=== PATIENT | male | born 1950 | race Caucasian/White ===

== ENCOUNTER → 2016-03-13 | Outpatient (CLI) | payer MEDICAID ==
[2016-03-13 09:07] LABS: CH 29.2; CHCM 33.8; HDW 2.55; MCH 28.9 pg (25.0-35.0); MCHC 33.3 g/dL (31.0-37.0); MCV 86.7 fL (80.0-100.0); Mean Platelet Volume 6.7; RBC 5.19 m/uL (4.30-5.90); RDW 12.6 % (11.5-15.5); WBC 5.3 k/uL (3.8-10.6)
[2016-03-13 10:01] LABS: ALT 35 U/L (21-72); AST 20 U/L (17-59); Alkaline Phosphatase 61 U/L (38-126); Anion Gap 9 mmol/L; Blood Urea Nitrogen 14 mg/dL (9-20); Calcium 9.4 mg/dL (8.4-10.2); Carbon Dioxide 29 mmol/L (22-30); Chloride 107 mmol/L (98-107); Cholesterol 161 mg/dL (<200); Glucose 99 mg/dL (74-99); HDL Cholesterol 57 mg/dL (40-60); Non-African American GFR(MDRD) >60 (>60 ml/min/1.73 sqM); Potassium 4.7 mmol/L (3.5-5.1); Sodium 145 mmol/L (137-145); Total Protein 6.7 g/dL (6.3-8.2); Triglycerides 56 mg/dL (<150)
[2016-03-13 11:45] LABS: Prostate Specific Antigen 2.37 ng/mL (0.00-4.00)
[2016-03-13 13:51] LABS: Hemoglobin A1C 5.2 % (4.2-6.1)
== END | disposition home or self-care (01) ==
LOC: LABWHC1 08:22
PROVIDERS: ATTEND Internal Medicine Critical Care Medicine
DX: H65.92 Unspecified nonsuppurative otitis media, left ear (principal)
CPT/HCPCS: 36415; 80053; 80061; 82164; 82306; 83036; 84153; 84439; 84443; 85027

== ENCOUNTER → 2017-03-05 | Outpatient (CLI) | payer MEDICAID ==
[2017-03-05 11:01] LABS: Basophils # (A) 0.1 k/uL (0-0.2); Basophils % (A) 1 %; Eosinophils % (A) 0 %; HCT 47.3 % (39.0-53.0); HGB 15.6 gm/dL (13.0-17.5); Lymphocytes # (A) 1.6 k/uL (1.0-4.8); Lymphocytes % (A) 18 %; MCH 28.9 pg (25.0-35.0); MCV 87.5 fL (80.0-100.0); Mean Platelet Volume 6.8; Monocytes # (A) 0.5 k/uL (0-1.0); Monocytes % (A) 6 %; Neutrophils # (A) 6.6 k/uL (1.3-7.7); Neutrophils % (A) 74 %; Platelet Count 262 k/uL (150-450); RDW 12.8 % (11.5-15.5); WBC 8.9 k/uL (3.8-10.6)
[2017-03-05 11:17] LABS: ALT 36 U/L (21-72); AST 17 U/L (17-59); Albumin 4.5 g/dL (3.5-5.0); Alkaline Phosphatase 69 U/L (38-126); Anion Gap 12 mmol/L; Blood Urea Nitrogen 23 mg/dL (9-20); Calcium 9.6 mg/dL (8.4-10.2); Carbon Dioxide 27 mmol/L (22-30); Chloride 107 mmol/L (98-107); Cholesterol 179 mg/dL (<200); Glucose 85 mg/dL (74-99); HDL Cholesterol 60 mg/dL (40-60); LDL Cholesterol,Calculated 105 mg/dL (0-99); Potassium 4.4 mmol/L (3.5-5.1); Sodium 146 mmol/L (137-145); Total Protein 7.2 g/dL (6.3-8.2); Triglycerides 68 mg/dL (<150)
[2017-03-05 11:33] LABS: T4, Free (Free Thyroxine) 0.98 ng/dL (0.78-2.19)
[2017-03-05 11:47] LABS: PSA Annual Screen 1.88 ng/mL (0.00-4.00)
[2017-03-05 18:20] LABS: Hemoglobin A1C 5.1 % (4.0-6.0)
== END | disposition home or self-care (01) ==
LOC: LABWHC1 10:21
PROVIDERS: ATTEND Internal Medicine Critical Care Medicine
DX: Z00.00 Encounter for general adult medical examination without abnormal findings (principal); D86.9 Sarcoidosis, unspecified; E55.9 Vitamin D deficiency, unspecified; Z12.5 Encounter for screening for malignant neoplasm of prostate
CPT/HCPCS: 84439; 80061; 80053; 82164; 84443; 85025; 82306; 83036; 36415; G0103

== ENCOUNTER 2018-07-06 22:56 | Emergency (ER) | payer BC ==
[2018-07-06 23:07] VITALS: TEMP 98.1
[2018-07-06] MEDS ORDERED: OXYMETAZOLINE 0.05% NASL SPRAY 1 SPRAY BOTTLE NASAL STA (23:42)
--- NOTE | 2018-07-07 00:24 | ED ---
ENT HPI - General Chief complaint: ENT Stated complaint: nose bleed Time Seen by Provider: 07/06/18 23:12 Source: patient Mode of arrival: ambulatory Limitations: no limitations - History of Present Illness Initial comments: Patient is a 67-year-old male presenting to emergency Department with epistaxis. Patient reports multiple epistaxis this month with no prior history of them. Patient denies any trauma to the nose. Patient states that one started earlier today lasted for about 40 minutes before they decided to come to the emergency department. Patient states that he apply pressure continuously without resolution of the bleed. Patient states almost all previous episodes appeared from the right nostril. Patient said that he followed up with his primary care who referred him to an ENT physician and have an appointment scheduled on the of this month. Patient denies any headache, nausea, vomiting, fever, lightheadedness, dizziness. - Related Data Previous Rx's Medication Instructions Recorded Sodium Chloride [Saline Nasal 1 spray EA NOSTRIL Q4-6H #1 bottle 07/07/18 [place]] Allergies Allergy/AdvReac Type Severity Reaction Status Date / Time naproxen [From Naprosyn] Allergy Rash/Hives Verified 07/06/18 23:23 Review of Systems ROS Statement: Those systems with pertinent positive or pertinent negative responses have been documented in the HPI. ROS Other: All systems not noted in ROS Statement are negative. Past Medical History Past Medical History: No Reported History History of Any Multi-Drug Resistant Organisms: None Reported Past Surgical History: Adenoidectomy, Cholecystectomy, Hernia Repair, Joint Replacement, Orthopedic Surgery, Tonsillectomy Additional Past Surgical History / Comment(s): prostate surgery Past Psychological History: No Psychological Hx Reported Smoking Status: Never smoker Past Alcohol Use History: None Reported Past Drug Use History: None Reported General Exam Limitations: no limitations General appearance: alert, in no apparent distress Head exam: Present: atraumatic, normocephalic, normal inspection Eye exam: Present: normal appearance, PERRL, EOMI Pupils: Present: normal accommodation ENT exam: Present: other (anterior Bleeding visualized in the right nostril. The visualized and the left nostril but no continuous bleeding.) Neck exam: Present: normal inspection Respiratory exam: Present: normal lung sounds bilaterally Cardiovascular Exam: Present: regular rate, normal rhythm, normal heart sounds Neurological exam: Present: alert, oriented X3 Psychiatric exam: Present: normal affect, normal mood Skin exam: Present: warm, normal color Course Vital Signs 07/06/18 23:03 Temperature 98.1 F Pulse Rate 90 Respiratory 20 Rate Blood Pressure 149/94 O2 Sat by Pulse 96 Oximetry Medical Decision Making - Medical Decision Making Patient is a 67-year-old male presenting to emergency Department with epistaxis. Afrin was applied in both nostrils and pressure was applied for 10 minutes. Bleeding continued so I cauterized using silver nitrate as I was able to visualize the anterior bleeding.. Patient was advised to use the Afrin and hold pressure in case bleeding occurs again. Patient advised to follow ENT. Patient advised to return to emergency department if symptoms worsen. Case discussed with physician. Disposition Clinical Impression: Epistaxis not due to trauma Disposition: HOME SELF-CARE Condition: Stable Instructions (If sedation given, give patient instructions): Nosebleed (ED) Additional Instructions: Please use Afrin as directed. Please follow-up with ENT please return to emergency department if symptoms worsen Is patient prescribed a controlled substance at d/c from ED?: No Referrals: Jesneia Jospeh MD [Primary Care Provider] - 1-2 days Ayaz Danielle DO [Doctor of Osteopathic Medicine] - 1-2 days Decision Time: 00:12
[2018-07-07] MEDS ORDERED: SILVER NITRATE APPLICATOR 1 EACH STICK..EA. TOPICAL STA (00:25)
[2018-07-07 00:54] VITALS: BP 138/87; PULSE 83; RESP 16
== END 2018-07-07 00:54 | disposition home or self-care (01) ==
LOC: EC 22:56
DX: R04.0 Epistaxis (principal); Z88.6 Allergy status to analgesic agent
CPT/HCPCS: 30901; 99283

== ENCOUNTER → 2018-07-19 | Outpatient (CLI) | payer BC ==
[2018-07-19 08:51] LABS: Basophils % (A) 1 %; Eosinophils # (A) 0.3 k/uL (0-0.7); Eosinophils % (A) 4 %; HCT 43.5 % (39.0-53.0); HGB 14.2 gm/dL (13.0-17.5); Lymphocytes # (A) 1.2 k/uL (1.0-4.8); Lymphocytes % (A) 18 %; MCH 28.1 pg (25.0-35.0); MCHC 32.7 g/dL (31.0-37.0); MCV 85.9 fL (80.0-100.0); Mean Platelet Volume 7.3; Monocytes # (A) 0.3 k/uL (0-1.0); Monocytes % (A) 5 %; Neutrophils # (A) 4.9 k/uL (1.3-7.7); Neutrophils % (A) 71 %; Platelet Count 247 k/uL (150-450); RBC 5.06 m/uL (4.30-5.90); RDW 14.4 % (11.5-15.5); WBC 6.9 k/uL (3.8-10.6)
[2018-07-19 08:52] LABS: INR 0.9 (<1.2); Prothrombin Time 9.6 sec (9.0-12.0)
== END | disposition home or self-care (01) ==
LOC: LABWHC1 08:21
PROVIDERS: ATTEND Otolaryngology
DX: R04.0 Epistaxis (principal)
CPT/HCPCS: 36415; 85025; 85610

== ENCOUNTER 2018-08-30 07:49 | Day surgery (SDC) | payer BC, OTHER ==
[2018-08-28 11:19] VITALS: BMI 28.1
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
[~2018-08-30 07:49] MED LIST: DEXAMETHASONE SOD PHOSPHATE 10 MG/ML 1 ML VIAL IV ONE; HEPARIN SODIUM,PORCINE 5,000 UNIT/ML 1 ML VIAL SQ ONE; ONDANSETRON 4 MG/2 ML VIAL IVP ONE; SCOPOLAMINE 1.5MG/72HR PATCH TRANSDERM ONE; ceFAZolin IN SWFI 2 GM/20 ML SYRINGE IVP ONE
[2018-08-30] MEDS: LACTATED RINGERS 1,000 ML IV SCH (08:42)
[2018-08-30] MEDS: LIDOCAINE 1% 20 ML VIAL (10MG/ML) FOR IV START INTRADERMA PRN ×2 (08:42→08:43)
[2018-08-30] MEDS ORDERED: ROCURONIUM BROMIDE 10 MG/ML 10 ML VIAL IV ONE (09:14)
[2018-08-30] MEDS ORDERED: fentaNYL (PF) 50 MCG/ML 2 ML AMP ONE (09:14)
[2018-08-30] MEDS ORDERED: NEOSTIGMINE 1 MG/ML 10 ML VIAL ONE (09:14)
[2018-08-30] MEDS ORDERED: SUCCINYLCHOLINE CHLORIDE 100 MG/5 ML SYR IV ONE (09:14)
[2018-08-30] MEDS ORDERED: LIDOCAINE 1% INJ 10MG/ML (20 ML MDV) ONE (09:14)
[2018-08-30] MEDS ORDERED: PROPOFOL 10 MG/ML 20 ML VIAL IV ONE (09:14)
[2018-08-30] MEDS ORDERED: MIDAZOLAM 2 MG/2 ML VIAL ONE (09:14)
[2018-08-30] MEDS ORDERED: GLYCOPYRROLATE 0.2 MG/ML 2 ML VIAL ONE (09:14)
[2018-08-30] MEDS ORDERED: BUPIVACAINE (PF) 0.25% 30 ML VIAL SQ ONE (09:57)
[2018-08-30] MEDS ORDERED: HYDROcodone/APAP 5-325MG 1 EACH TAB PO PRN (11:26)
[2018-08-30] MEDS ORDERED: NALOXONE 0.4 MG/ML 1 ML VIAL IV PRN (11:26)
[2018-08-30 11:28] VITALS: TEMP 97.1
--- NOTE | 2018-08-30 11:33 | P.OP ---
Date of Procedure: 08/30/18 Procedure(s) Performed: PREOPERATIVE DIAGNOSIS: Recurrent left inguinal hernia, right inguinal hernia POSTOPERATIVE DIAGNOSIS: Same PROCEDURE: Laparoscopic repair bilateral inguinal hernia with the da Elysia robot assistance with mesh SURGEON: Esperanza EBL: Minimal ANESTHESIA: General COMPLICATIONS: None OPERATIVE PROCEDURE: Patient was placed in the operating table in the supine position. The patient was placed under general anesthesia. The abdomen was prepped and draped in usual sterile fashion. A small curvilinear supraumbilical incision was made. The fascia was retracted anteriorly with Gregg forceps. The Veress needle was inserted. The saline drop test was normal. Insufflation took place to 15 mmHg. A 5 mm trocar was placed into the peritoneal cavity. This was later switched to a 12 mm trocar. 2 additional 8 mm trochars were placed in the right upper quadrant and left upper quadrant under visualization. The robotic arms were then brought in and docked into place. The fenestrated bipolar was used in the left arm and the laparoscopic maribel was utilized in the right arm. A 30 12 mm scope was used in the up position. The peritoneal cavity was inspected. The patient had evidence of a direct hernia on the right side. There was scarring involving the peritoneum on the left side. There was no defect evident on the left side to point out the exact site of hernia. The left side was first addressed. The peritoneum was incised in a horizontal fashion cephalad to the internal inguinal ring. Following that careful dissection of the preperitoneal space took place. This took place using both electrocautery, sharp dissection but primarily blunt dissection. Visualization of the pubic tubercle and Doc's ligament took place medially. Full dissection took place laterally as well. The patient had a small femoral hernia evident. There was no large indirect or direct hernia identified. There was no sizable lipoma of the cord evident. Once the dissection was complete the 15 x 10 cm Progrip mesh was advanced into the preperitoneal space and flattened out appropriately to cover all potential hernia sites. No sutures were used. The peritoneum on the right side was then incised in a similar fashion. The preperitoneal space was fully dissected. The direct hernia was able to be reduced without difficulty. There was no evidence of femoral or indirect hernia on this side. The 15 by centimeter Progrip mesh was again utilized and placed along the dissection cov ering all potential hernia sites. The 2 portions of the mesh did cover one another in the midline. The defect bilaterally was then closed using a running 2-0 VLok suture. The pneumoperitoneum was then evacuated. The fascia at the 12 mm site was closed using the Juan Antonio Hussein technique and an 0 Vicryl stitch. The skin of all 3 sites was closed using a 4-0 Monocryl stitch. Skin glue was then applied. DISPOSITION: Stable to recovery room
[2018-08-30] MEDS: HYDROmorphone 0.5 MG/0.5 ML SYRINGE IVP PRN ×2 (11:49→12:06)
[2018-08-30] MEDS ORDERED: ONDANSETRON 4 MG/2 ML VIAL IVP ONE (12:30)
[2018-08-30 12:49] VITALS: RESP 18
[2018-08-30] MEDS ORDERED: PROMETHAZINE INJ 25 MG/ML 1 ML VIAL IVPB ONE (13:07)
[2018-08-30 13:41] VITALS: BP 134/84; PULSE 72
== END 2018-08-30 13:54 | disposition home or self-care (01) ==
LOC: OR 07:49
PROVIDERS: ATTEND Surgery
DX: K40.20 Bilateral inguinal hernia, without obstruction or gangrene, not specified as recurrent (principal); I10 Essential (primary) hypertension; Z79.899 Other long term (current) drug therapy; Z88.6 Allergy status to analgesic agent; Z90.49 Acquired absence of other specified parts of digestive tract; Z96.60 Presence of unspecified orthopedic joint implant
CPT/HCPCS: 49650; S2900

== ENCOUNTER 2019-03-15 13:03 | Inpatient (IN) | payer MEDICARE ==
[2019-03-15] MEDS ORDERED: ASPIRIN 81 MG PO STA (13:28)
[2019-03-15] MEDS ORDERED: SODIUM CHLORIDE 0.9% 500 ML 500 ML IV STA (13:28)
[2019-03-15 14:06] LABS: Basophils % (A) 1 %; Eosinophils # (A) 0.3 k/uL (0-0.7); Eosinophils % (A) 4 %; HCT 45.2 % (39.0-53.0); HGB 15.5 gm/dL (13.0-17.5); Lymphocytes # (A) 1.4 k/uL (1.0-4.8); Lymphocytes % (A) 17 %; MCH 29.4 pg (25.0-35.0); MCHC 34.2 g/dL (31.0-37.0); MCV 85.9 fL (80.0-100.0); Mean Platelet Volume 7.3; Monocytes # (A) 0.4 k/uL (0-1.0); Monocytes % (A) 5 %; Neutrophils % (A) 72 %; Platelet Count 253 k/uL (150-450); RBC 5.27 m/uL (4.30-5.90); RDW 12.5 % (11.5-15.5); WBC 8.3 k/uL (3.8-10.6)
[2019-03-15 14:15] LABS: D-Dimer 0.31 mg/L FEU (<0.60); INR 0.9 (<1.2); Partial Thromboplastin Time 25.3 sec (22.0-30.0); Prothrombin Time 9.6 sec (9.0-12.0)
[2019-03-15 14:17] LABS: Albumin 4.4 g/dL (3.5-5.0); Calcium 9.4 mg/dL (8.4-10.2); Magnesium 2.1 mg/dL (1.6-2.3); Potassium 3.7 mmol/L (3.5-5.1); Total Bilirubin 1.2 mg/dL (0.2-1.3); Total Protein 7.3 g/dL (6.3-8.2)
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
--- NOTE | 2019-03-15 14:43 | XR ---
EXAMINATION TYPE: XR chest 2V DATE OF EXAM: 03/15/2019 COMPARISON: NONE HISTORY: Shortness of breath TECHNIQUE: Frontal and lateral views of the chest are obtained. FINDINGS: Scattered senescent parenchymal changes noted. Hyperinflation compatible with COPD. No evidence for infiltrate. No evidence for atelectasis. Heart size is stable. Mediastinal structures are stable and grossly unremarkable. No evidence for hilar prominence. Degenerative changes dorsal spine. IMPRESSION: 1. No evidence for acute pulmonary disease.
[2019-03-15] MEDS ORDERED: NITROGLYCERIN SL TABS 0.4 MG TAB SUBLINGUAL PRN (14:58)
[2019-03-15] MEDS ORDERED: NALOXONE 0.4 MG/ML 1 ML VIAL IV PRN (17:11)
[2019-03-15] MEDS ORDERED: ACETAMINOPHEN TAB 325 MG TAB PO PRN (17:11)
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
[2019-03-15 20:32] LABS: Glucose,Whole Blood 107 mg/dL (75-99)
[2019-03-16 03:06] LABS: Cholesterol 157 mg/dL (<200); HDL Cholesterol 43 mg/dL (40-60); LDL Cholesterol,Calculated 98 mg/dL (0-99); Triglycerides 80 mg/dL (<150)
[2019-03-16] MEDS: ASPIRIN 325 MG TAB PO SCH (10:42)
[2019-03-16] MEDS: HYDROCHLOROTHIAZIDE 12.5 MG CAP PO SCH (10:42)
[2019-03-16] MEDS ORDERED: SODIUM CHLORIDE 0.9% 1,000 ML in EMPTY BAG 1 BAG IV ONE (10:48)
[2019-03-16] MEDS ORDERED: ALPRAZolam 0.5 MG TAB PO PRN (10:48)
[2019-03-16] MEDS ORDERED: ALPRAZolam 0.25 MG TAB PO PRN (10:48)
--- NOTE | 2019-03-16 11:00 | ECHOF ---
Referral Reason: MEASUREMENTS -------- HEIGHT: 167.6 cm WEIGHT: 83.0 kg BP: 149/100 RVIDd: 4.1 cm (< 3.3) IVSd: 1.6 cm (0.6 - 1.1) LVIDd: 3.9 cm (3.9 - 5.3) LVPWd: 1.6 cm (0.6 - 1.1) IVSs: 2.3 cm LVIDs: 2.3 cm LVPWs: 2.1 cm LAESV Index (A-L): 19.35 ml/m Ao Diam: 3.0 cm (2.0 - 3.7) AV Cusp: 2.2 cm (1.5 - 2.6) LA Diam: 3.6 cm (2.7 - 3.8) MV EXCURSION: 17.007 mm (> 18.000) MV EF SLOPE: 93 mm/s (70 - 150) EPSS: 1.0 cm MV E Vamsi: 0.56 m/s MV DecT: 192 ms MV A Vamsi: 0.59 m/s MV E/A Ratio: 0.94 AR PHT: 876 ms RAP: 15.00 mmHg RVSP: 48.12 mmHg FINDINGS -------- Sinus rhythm. This was a technically adequate study. The left ventricular size is normal. There is moderate concentric left ventricular hypertrophy. O verall left ventricular systolic function is normal with, an EF between 55 - 60 %. The diastolic fi lling pattern is normal for the age of the patient 6.24. The right ventricle is moderately enlarged. The left atrial size is normal. Normal LA size by volume 22+/-6 ml/m2. The right atrial size is normal. The aortic valve is trileaflet and appears structurally normal. There is [id number] aortic re gurgitation. The mitral valve is normal. The mitral valve leaflets are mildly thickened. Mild mitral regurgita tion is present. The tricuspid valve appears structurally normal. Mild tricuspid regurgitation present. There is m ild to moderate pulmonary hypertension. The right ventricular systolic pressure, as measured by Dop pler, is 48.12mmHg. There is no pulmonic regurgitation present. The aortic root size is normal. The inferior vena cava is mildly dilated. There is no pericardial effusion. CONCLUSIONS -------- 1. Sinus rhythm. 2. This was a technically adequate study. 3. The left ventricular size is normal. 4. There is moderate concentric left ventricular hypertrophy. 5. Overall left ventricular systolic function is normal with, an EF between 55 - 60 %. 6. The diastolic filling pattern is normal for the age of the patient 6.24 7. The right ventricle is moderately enlarged. 8. The left atrial size is normal. 9. Normal LA size by volume 22+/-6 ml/m2. 10. The right atrial size is normal. 11. The aortic valve is trileaflet and appears structurally normal. 12. There is gfcq-uf-rdggiwca aortic regurgitation. 13. The mitral valve is normal. 14. The mitral valve leaflets are mildly thickened. 15. Mild mitral regurgitation is present. 16. The tricuspid valve appears structurally normal. 17. Mild tricuspid regurgitation present. 18. There is mild to moderate pulmonary hypertension. 19. The right ventricular systolic pressure, as measured by Doppler, is 48.12mmHg. 20. There is no pulmonic regurgitation present. 21. The aortic root size is normal. 22. The inferior vena cava is mildly dilated. 23. There is no pericardial effusion. HAMMERER TAB: Zulma Meraz, [facility]
--- NOTE | 2019-03-16 12:19 | P.PN ---
Subjective Progress Note Date: 03/16/19 Principal diagnosis: Palpitations and shortness of breath Patient was seen and examined. No acute events overnight. Patient with no complaints today. He denies any chest pain, shortness of breath or palpitations. No nausea or vomiting. No fever or chills. Objective - Vital Signs Vital signs: Vital Signs Temp 97.6 F 03/16/19 11:27 Pulse 76 03/16/19 11:27 Resp 18 03/16/19 11:27 BP 147/81 03/16/19 11:27 Pulse Ox 96 03/16/19 11:27 Intake & Output 03/15/19 03/16/19 03/16/19 18:59 06:59 18:59 Intake Total 222 Balance 222 Weight 83.007 kg Intake: Oral 222 Other: # Voids 1 - Exam General: [non toxic], [no distress], [appears at stated age] Derm: [warm], [dry] Head: [atraumatic], [normocephalic], [symmetric] Eyes: [EOMI], [no lid lag], [anicteric sclera] Mouth: [no lip lesion], [mucus membranes moist] Cardiovascular: [S1S2 reg], [no murmur], [positive DP pulse bilateral], Lungs: [CTA bilateral], [no rhonchi, no rales] , [no accessory muscle use] Abdominal: [soft], [ nontender to palpation], [no guarding], [no appreciable organomegaly] Ext: [no gross muscle atrophy], [no edema], [no contractures] Neuro: [no focal neuro deficits] Psych: [Alert], [oriented], [appropriate affect] - Labs CBC & Chem 7: 03/15/19 13:47 03/15/19 13:47 Labs: Abnormal Lab Results - Last 24 Hours (Table) 03/15/19 Range/Units 20:26 POC Glucose (mg/dL) 107 H (75-99) mg/dL Assessment and Plan Assessment: Palpitations with exertional shortness of breath, rule out acute coronary syndrome Uncontrolled Hypertension History of prostate cancer Given aspirin in the ED. Troponin less than 0.012 3 with EKG showing normal sinus rhythm with T-wave abnormalities. Symptoms appear cardiac in nature. D- dimer negative low concerns for PE. Echocardiogram shows EF 55-60% with moderate concentric LVH. Lipid panel is within normal limits. Plans: Plans for cardiac catheterization tomorrow. 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 Follow cardiology consultation. BP 147/81. Plans: Resume hydrochlorothiazide. Monitor vitals, adjust medications as necessary. PSA negative July 2018. Plans: Patient will need adequate follow-up with his PCP. [Patient admitted for stable angina. Plans for cardiac catheterization tomorrow. ACS ruled out. Likely DC in 1-2 days.]
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
[2019-03-17] MEDS: ASPIRIN 325 MG TAB PO SCH (06:05)
[2019-03-17] MEDS: HYDROCHLOROTHIAZIDE 12.5 MG CAP PO SCH (06:05)
[2019-03-17 07:45] VITALS: RESP 18
--- NOTE | 2019-03-17 08:28 | P.PN ---
Subjective Progress Note Date: 03/17/19 Principal diagnosis: patient is seen for follow up on stable angina symptoms, palpitation with SOB Patient seen and examined, doing well currently nothing by mouth, denies any fev ers chills chest pain trouble breathing or palpitations. Patient in good spirits answered all questions. Patient at bedside awaiting for left heart cath Objective - Vital Signs Vital signs: Vital Signs Temp 98.0 F 03/16/19 23:49 Pulse 82 03/16/19 23:49 Resp 17 03/16/19 23:49 BP 118/71 03/16/19 23:49 Pulse Ox 99 03/16/19 23:49 Intake & Output 03/16/19 03/17/19 03/17/19 18:59 06:59 18:59 Weight 79.4 kg Other: # Voids 1 1 - Exam Constitutional: vital signs stable, Not in acute distress, pleasant, conversant Lungs: Clear to auscultation bilaterally, clear to percussion, normal respiratory effort no use of accessory muscles Cardiovascular: Regular rate and rhythm, no murmurs, no gallops, no rubs, no peripheral edema Extremities: No digital cyanosis or clubbing, peripheral pulses palpable and equal over bilateral radial arteries and dorsalis pedis artery, no calf muscle tenderness Psych: Alert, oriented to place, person and time, appropriate affect, intact judgment - Labs CBC & Chem 7: 03/15/19 13:47 03/15/19 13:47 Assessment and Plan Assessment: 68 year old male with history of CAD, and prostate cancer patient comes in with palpitation and chest pain symptoms suggestive of stable angina. Echocardiogram showed left ventricular ejection fraction 5560 percent with moderate concentric LVH pattern. Tubes negative. Cardiology planning on left heart cath Plan: symptoms suggestive of stable angina , Palpitations with exertional shortness of breath, rule out acute coronary syndrome hypertension , now better controlled , on hydrochlorthiazide History of prostate cancer patient monitor uneventful labs unremarkable , flu negative, LDL 98, trops negative Echocardiogram shows EF 55-60% with moderate concentric LVH. cardiology Plans for cardiac catheterization today , continue with aspirin PSA negative July 2018. Plans: Patient will need adequate follow-up with his PCP. DVT PPX, heparin sc tid possible discharge within 24 hours, await cardiology recs.
[2019-03-17] MEDS ORDERED: IV FLUID CONTINUATION 1,000 ML IV ONE (08:48)
[2019-03-17] MEDS ORDERED: LIDOCAINE 1% INJ 10MG/ML (20 ML MDV) ONE (08:55)
[2019-03-17] MEDS ORDERED: fentaNYL (PF) 50 MCG/ML 2 ML AMP ONE (08:56)
[2019-03-17] MEDS ORDERED: MIDAZOLAM 2 MG/2 ML VIAL IV ONE (08:58)
[2019-03-17] MEDS ORDERED: fentaNYL (PF) 50 MCG/ML 2 ML AMP IV ONE (08:59)
[2019-03-17] MEDS ORDERED: LIDOCAINE 1% INJ 10MG/ML (20 ML MDV) SQ ONE (09:03)
[2019-03-17] MEDS ORDERED: IOPAMIDOL-370 125ML BTL INJ ONE (09:20)
[2019-03-17] MEDS ORDERED: RX INFO: IV CONTRAST WAS GIVEN 1 EACH MISC MISCELLANE PRN (09:38)
[2019-03-17] MEDS ORDERED: METOPROLOL SUCCINATE (ER) 50 MG TAB.ER.24H PO SCH (09:45)
[2019-03-17] MEDS ORDERED: SODIUM CHLORIDE 0.9% 1,000 ML IV SCH (09:45)
[2019-03-17] MEDS ORDERED: ATORVASTATIN 20 MG TAB PO SCH (09:45)
--- NOTE | 2019-03-17 09:45 | CC ---
CARDIAC CATHETERIZATION REPORT INDICATION: Unstable angina. PROCEDURE NOTE: After obtaining informed consent, left heart catheterization and coronary angiogram were performed via the right femoral artery using standard Goldy catheters. Patient tolerated the procedure well without any obvious immediate complications. A femoral angiogram was performed and Angio-Seal was deployed for hemostasis. Patient received moderate conscious sedation. Total sedation time was 20 minutes. FINDINGS: HEMODYNAMICS: Left ventricular end-diastolic pressure is 12-14 mm. There is no significant gradient across the aortic valve. LEFT VENTRICULOGRAM: Left ventriculogram is not performed. ANGIOGRAPHIC DATA: LEFT MAIN CORONARY ARTERY: Left main coronary artery shows some atherosclerotic plaque in the ostial portion, but there may be a 10%-20% stenosis noted. We do not see any dampening of the pressure wave on engaging the left main and I obtained multiple views of the left main and did not see any significant lesion. LAD and its branches are free of significant stenosis. Circumflex coronary artery is a nondominant vessel and is free of significant disease. Right coronary artery is a large dominant vessel and is free of stenosis. CONCLUSION: Ostial left main atherosclerotic plaque that does not seem significant. PLAN: Patient will be treated with medical therapy with aspirin, statins, and aggressive risk factor modification. I am going to do a treadmill stress test on him and if he has EKG changes or has angina on treadmill, will consider doing an IVUS of the left main. The patient can be discharged home later this evening and I will arrange outpatient followup for him. Thank you for allowing us to participate in the care of this pleasant gentleman. MMMAYAL / IJN: [id number] /
--- NOTE | 2019-03-17 09:51 | LTR ---
DATE OF SERVICE: 03/17/2019 RE: Cullen Alvarado Dear Dr. Joseph: I performed cardiac catheterization on Cullen Alvarado, a detailed catheterization note is enclosed for your records. This 68-year-old gentleman presented to [facility] with unstable angina and his cardiac catheterization revealed an atherosclerotic plaque affecting the ostial left main that does not seem significant and patient's management is going to be in the form of optimal medical therapy. Thank you for giving us the privilege to participate in the care of this pleasant gentleman. Sincerely, MD CLAUDE Kumari / ASHLEY: [id number] /
[2019-03-17] MEDS ORDERED: INFLUENZA VACCINE (6 MOS+) 60 MCG/0.5 ML SYRINGE IM ONE (14:00)
[2019-03-17 15:43] VITALS: BP 117/76; PULSE 62; TEMP 97.9
[2019-03-17] MEDS ORDERED: HEPARIN SODIUM,PORCINE 5,000 UNIT/ML 1 ML VIAL SQ SCH (16:00)
--- NOTE | 2019-03-17 17:38 | P.DS ---
Providers Date of admission: 03/17/19 14:31 Attending physician: Mallika Gupta MD Consults: 03/15/19 14:58 Consult Physician Urgent Consulting Provider: Matteo Argueta Consult Reason/Comments: chest pain Do you want consulting provider notified?: Yes Primary care physician: Jes[facility] Course: Final diagnosis upon discharge Chest pain , Palpitations with exertional shortness of breath, left heart cath showed Ostial left main atherosclerotic plaque that does not seem significant hypertension History of prostate cancer hospital course 68 year old male with history of CAD, and prostate cancer patient comes in with palpitation and chest pain symptoms suggestive of stable angina. Echocardiogram showed left ventricular ejection fraction 5560 percent with moderate concentric LVH pattern. Tubes negative. Cardiology performed left heart cath showed athersclerotic plaque but no significant stenosis patient is seen and examined on day of discharge doing well currently nothing by mouth, denies any fevers chills chest pain trouble breathing or palpitations. Patient in good spirits answered all questions. Patient at bedside patient tolerated procedure well and ambulated Objective - Vital Signs Vital signs: Vital Signs Temp 98.0 F 03/16/19 23:49 Pulse 82 03/16/19 23:49 Resp 17 03/16/19 23:49 BP 118/71 03/16/19 23:49 Pulse Ox 99 03/16/19 23:49 Intake & Output 03/16/19 03/17/19 03/17/19 18:59 06:59 18:59 Weight 79.4 kg Other: # Voids 1 1 - Exam Constitutional: vital signs stable, Not in acute distress, pleasant, conversant Lungs: Clear to auscultation bilaterally, clear to percussion, normal respiratory effort no use of accessory muscles Cardiovascular: Regular rate and rhythm, no murmurs, no gallops, no rubs, no peripheral edema Extremities: No digital cyanosis or clubbing, peripheral pulses palpable and equal over bilateral radial arteries and dorsalis pedis artery, no calf muscle tenderness Psych: Alert, oriented to place, person and time, 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 left heart cath showed no significant stenosis PSA negative July 2018. Plans: Patient will need adequate follow-up with his PCP. discharge home stable condition. cleared for discharge by cardiology med rec performed follow up with cardiology and PCP 30 minutes were spent discharging this patient, and more than 50% of the time was spent in counseling the patient and family and in coordinating care. Procedures: left heart cath Patient Condition at Discharge: Serious Plan - Discharge Summary New Discharge Prescriptions: New Atorvastatin [Lipitor] 20 mg PO DAILY #30 tablet Aspirin EC [Ecotrin Low Dose] 81 mg PO DAILY #30 tablet. Atorvastatin [Lipitor] 20 mg PO DAILY #30 tab Continue Cholecalciferol (Vitamin D3) [Vitamin D3] 2,000 unit PO DAILY Metoprolol Succinate (ER) [Toprol XL] 50 mg PO DAILY Hydrochlorothiazide [Hydrodiuril] 12.5 mg PO DAILY Discharge Medication List Cholecalciferol (Vitamin D3) [Vitamin D3] 2,000 unit PO DAILY 08/28/18 [History] Hydrochlorothiazide [Hydrodiuril] 12.5 mg PO DAILY 03/15/19 [History] Metoprolol Succinate (ER) [Toprol XL] 50 mg PO DAILY 03/15/19 [History] Aspirin EC [Ecotrin Low Dose] 81 mg PO DAILY #30 tablet. 03/17/19 [Rx] Atorvastatin [Lipitor] 20 mg PO DAILY #30 tab 03/17/19 [Rx] Atorvastatin [Lipitor] 20 mg PO DAILY #30 tablet 03/17/19 [Rx] Follow up Appointment(s)/Referral(s): Jesenia Joseph MD [Primary Care Provider] - 1-2 days Eder Wilkes MD [STAFF PHYSICIAN] - 1 Week Patient Instructions/Handouts: Left Heart Catheterization (DC) Discharge Disposition: HOME SELF-CARE
== END 2019-03-17 19:02 | disposition home or self-care (01) | DRG 287 ==
LOC: EC 13:03 → 1SOBS 15:10 → OBSVTOIN 03-17 14:31
PROVIDERS: ADMIT Family Medicine; ATTEND Family Medicine
PROC: 4A023N7 Measurement of Cardiac Sampling and Pressure, Left Heart, Percutaneous Approach (ICD-10-PCS; principal; 2019-03-17 09:00)
PROC: B2111ZZ Fluoroscopy of Multiple Coronary Arteries using Low Osmolar Contrast (ICD-10-PCS; principal; 2019-03-17 09:00)
DX: I25.110 Atherosclerotic heart disease of native coronary artery with unstable angina pectoris (principal); D86.9 Sarcoidosis, unspecified; E11.9 Type 2 diabetes mellitus without complications; I10 Essential (primary) hypertension; Z79.899 Other long term (current) drug therapy; Z85.46 Personal history of malignant neoplasm of prostate; Z88.6 Allergy status to analgesic agent
CPT/HCPCS: 36415; 71046; 80053; 80061; 83735; 84484; 85025; 85379; 85610; 85730; 87502; 90686; 93306; 93458; 99285

== ENCOUNTER 2019-03-30 17:42 | Observation (INO) | payer MEDICARE ==
--- NOTE | 2019-03-30 17:24 | US ---
EXAMINATION TYPE: US venous doppler duplex LE RT DATE OF EXAM: 03/30/2019 5:17 PM COMPARISON: NONE CLINICAL HISTORY: rt lower ext, Pain M79.661. History of cauterization one week ago, right leg pain a nd swelling. SIDE PERFORMED: Right TECHNIQUE: The lower extremity deep venous system is examined utilizing real time linear array sonog ford with graded compression, doppler sonography and color-flow sonography. VESSELS IMAGED: External Iliac Vein (EIV) Common Femoral Vein Deep Femoral Vein Greater Saphenous Vein * Femoral Vein Popliteal Vein Small Saphenous Vein * Proximal Calf Veins (* superficial vessels) Right Leg: Negative for DVT Incidental note is made of large pseudo aneurysm in right groin. IMPRESSION: No evidence of deep vein thrombosis in the right leg. 

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
[2019-03-30] MEDS ORDERED: SODIUM CHLORIDE 0.9% 1,000 ML IV ONE (18:43)
[2019-03-30 19:28] LABS: HCT 40.2 % (39.0-53.0); HGB 13.4 gm/dL (13.0-17.5); MCH 28.5 pg (25.0-35.0); MCHC 33.3 g/dL (31.0-37.0); MCV 85.4 fL (80.0-100.0); Mean Platelet Volume 7.6; Platelet Count 252 k/uL (150-450); RBC 4.71 m/uL (4.30-5.90); WBC 9.8 k/uL (3.8-10.6)
[2019-03-30 19:33] LABS: INR 0.9 (<1.2); Prothrombin Time 9.9 sec (9.0-12.0)
[2019-03-30 19:35] LABS: Calcium 9.4 mg/dL (8.4-10.2); Potassium 4.1 mmol/L (3.5-5.1)
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
[2019-03-30] MEDS ORDERED: ACETAMINOPHEN TAB 325 MG TAB PO PRN (23:30)
[2019-03-31 07:20] LABS: Basophils % (A) 1 %; Eosinophils # (A) 0.4 k/uL (0-0.7); Eosinophils % (A) 5 %; HCT 40.2 % (39.0-53.0); HGB 13.5 gm/dL (13.0-17.5); Lymphocytes # (A) 1.1 k/uL (1.0-4.8); Lymphocytes % (A) 15 %; MCHC 33.5 g/dL (31.0-37.0); MCV 86.6 fL (80.0-100.0); Mean Platelet Volume 7.5; Monocytes # (A) 0.4 k/uL (0-1.0); Monocytes % (A) 6 %; Neutrophils # (A) 5.1 k/uL (1.3-7.7); Neutrophils % (A) 71 %; Platelet Count 243 k/uL (150-450); RBC 4.64 m/uL (4.30-5.90); RDW 12.9 % (11.5-15.5); WBC 7.2 k/uL (3.8-10.6)
[2019-03-31] MEDS: METOPROLOL SUCCINATE (ER) 50 MG TAB.ER.24H PO SCH (08:30)
[2019-03-31] MEDS: ATORVASTATIN 20 MG TAB PO SCH (08:30)
[2019-03-31] MEDS: ASPIRIN 81 MG PO SCH (08:31)
[2019-03-31] MEDS: HYDROCHLOROTHIAZIDE 12.5 MG CAP PO SCH (08:31)
[2019-03-31] MEDS: HYDROcodone/APAP 5-325MG 1 EACH TAB PO PRN ×2 (08:35→19:02)
[2019-03-31] MEDS ORDERED: THROMBIN (BOVINE) 5,000 UNIT VIAL TOPICAL STA (09:08)
--- NOTE | 2019-03-31 10:09 | P.PCN ---
Date of Procedure: 03/31/19 Preoperative Diagnosis: pseudoaneursym right groin Postoperative Diagnosis: thrombosed pseudoaneursym Procedure(s) Performed: thrombin injection Anesthesia: local Estimated Blood Loss (ml): 1 Pathology: none sent Condition: stable Disposition: observation Operative Findings: 150 u thrombin injection, no residual color flow, patient remain NV intact distally, 2+ post tibial pulse right
--- NOTE | 2019-03-31 11:02 | CONS ---
CONSULTATION Pramod is a 68-year-old gentleman with history of hypertension and coronary artery disease, who came to hospital complaining of right groin discomfort. He underwent a cardiac catheterization for unstable angina within the last 2 weeks. It revealed mild nonobstructive coronary artery disease. He developed discomfort in the right groin that was progressively getting worse over the last several days due to which he came to the ER where he underwent a vascular duplex study that showed evidence of pseudoaneurysm that measured about 3 cm. There was no DVT. Interventional Radiology had been consulted for thrombin injection. The patient is otherwise doing well. PAST MEDICAL HISTORY: Significant for CAD, hypertension, dyslipidemia. MEDICATIONS: Current medications include hydrochlorothiazide 12.5 q. daily, Lipitor, Toprol XL, aspirin and vitamin D. ALLERGIES: Allergic to NAPROSYN. FAMILY HISTORY: Negative for premature coronary artery disease. SOCIAL HISTORY: Negative for current smoking. REVIEW OF SYSTEMS: Review of systems is unremarkable other than what has been mentioned so far. PHYSICAL EXAMINATION: On exam, he is comfortable at rest. Vital signs are stable. There is no jugular venous distention. Carotid upstroke is normal. There is no bruit. Chest exam reveals good air entry bilaterally. Heart exam reveals first and second heart sounds. No gallop. No murmur. Abdomen is soft, nontender. Right groin shows ecchymoses. I do not hear any bruit. Foot pulses are intact. LABS: Labs show that the hemoglobin is 13.5, is 7.2 potassium is 4.1, creatinine is 1. Venous Doppler study is negative for DVT. It is positive for pseudoaneurysm. ASSESSMENT: Pseudoaneurysm in a patient with recent catheterization. PLAN: Interventional Radiology is consulted. They will proceed with thrombin injection. Hopefully home tomorrow. MMODL / IJN: [id number] /
--- NOTE | 2019-03-31 12:36 | P.PN ---
Subjective Progress Note Date: 03/31/19 68-year-old male with coronary artery disease on medical therapy, hypertension, who comes to hospital for 2 weeks after left heart cath through the right groin he noticed that there is progressive swelling of his right leg along with ecchymosis over his right groin that was fading out gradually. He reports that he started noticing some pain in his right lower extremity especially with activity. 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 He reports that this pain was 5-6 out of 10 in severity dull achy pain involving his right groin extending all the way to the right leg. Usually pain goes away with sleep and resting and he starts feeling it first thing in the morning when he wakes up and definitely when he goes to his work. He had his follow-up today with his industrial maintenance tech recommended that he goes to the hospital for evaluation to rule out DVT. 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 Patient reported that he has history of venous insufficiency and his legs used to be swollen and developed frequent cellulitis until about 5 years ago when he went to [facility] and had varicose vein surgery done and since then edema and cellulitis improved significantly. Patient stated that his legs especially the right leg started getting swollen again after the procedure 2 weeks ago. Although since in the hospital he is elevating his legs and his swelling is slightly improved but patient who was present at the bedside was also concerned about the leg swelling. Both were updated about negative venous Doppler for deep venous thrombosis. And patient was supposed to have local procedure were interventional radiologist today for a pseudoaneurysm. Patient denies chest pain, palpitation, headache, dizziness, R, nausea, vomiting, diarrhea, fever, chills and denies rest of the review system. Objective - Vital Signs Vital signs: Vital Signs Temp 97.5 F L 03/31/19 08:00 Pulse 61 03/31/19 12:00 Resp 12 03/31/19 12:00 BP 135/80 03/31/19 10:05 Pulse Ox 95 03/31/19 10:05 Intake & Output 03/30/19 03/31/19 03/31/19 18:59 06:59 18:59 Weight 83.325 kg 83.325 kg Other: Voiding Method Toilet # Voids 1 2 - Constitutional General appearance: Present: cooperative, no acute distress - EENT Eyes: Present: EOMI, normal appearance ENT: Present: hearing grossly normal, NA/AT - Neck Neck: Present: normal ROM. Absent: lymphadenopathy, rigidity, thyromegaly - Respiratory Respiratory: bilateral: CTA, negative: diminished, dullness, rales, rhonchi, wheezing - Cardiovascular Rhythm: regular Heart sounds: normal: S1, S2 Abnormal Heart Sounds: Absent: systolic murmur, diastolic murmur, S3 Gallop, S4 Gallop - Gastrointestinal General gastrointestinal: Present: absent bowel sounds, normal bowel sounds, soft. Absent: distended, rigid, tenderness - Integumentary Integumentary Comment(s): Trace pitting lower extremity edema slightly more on the right side as compared to left. Right groin no ecchymosis/bruises noted over the right groin area. - Neurologic Neurologic: Present: CNII-XII intact. Absent: focal deficits - Psychiatric Psychiatric: Present: A&O x's 3, appropriate affect, intact judgment & insight - Allied health notes Allied health notes reviewed: nursing - Labs CBC & Chem 7: 03/31/19 06:28 03/30/19 19:10 Labs: Abnormal Lab Results - Last 24 Hours (Table) 03/30/19 Range/Units 19:10 BUN 21 H (9-20) mg/dL Assessment and Plan Plan: 68-year-old male with coronary artery disease on medical therapy, hypertension, who comes to hospital for 2 weeks after left heart cath through the right groin he noticed that there is progressive swelling of his right leg along with ecchymosis over his right groin that was fading out gradually. He reports that he started noticing some pain in his right lower extremity especially with activity. 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 He reports that this pain was 5-6 out of 10 in severity dull achy pain involving his right groin extending all the way to the right leg. Usually pain goes away with sleep and r esting and he starts feeling it first thing in the morning when he wakes up and definitely when he goes to his work. He had his follow-up today with his industrial maintenance tech recommended that he goes to the hospital for evaluation to rule out DVT. Venous duplex ultrasound done in the hospital showed no evidence of acute DVT however found a pseudoaneurysm of 3 cm in the right groin. Anticipated length of stay less than two midnights Plan: pseudoaneurysm 3 cm of right groin evaluation by interventional radiology and possible procedure today at bed side. hypertension , controlled , continue home meds history of CAD continue with aspirin and statin Preformed a thorough record review from recent hospitalization for left heart cath showed posterior left main atherosclerotic plaque cardiology recommended maximal medical therapy CODE STATUS: Full code DVT prophylaxis: Mechanical Discussed with: Patient, , RN Anticipated length of stay less than than [address]: Home in AM Time with Patient: Less than 30
[2019-04-01] MEDS: ASPIRIN 81 MG PO SCH (07:21)
[2019-04-01] MEDS: HYDROCHLOROTHIAZIDE 12.5 MG CAP PO SCH (07:30)
[2019-04-01] MEDS: ATORVASTATIN 20 MG TAB PO SCH (07:30)
[2019-04-01] MEDS: METOPROLOL SUCCINATE (ER) 50 MG TAB.ER.24H PO SCH (07:30)
[2019-04-01] MEDS: HYDROcodone/APAP 5-325MG 1 EACH TAB PO PRN (07:33)
--- NOTE | 2019-04-01 07:42 | US ---
EXAMINATION TYPE: US lower ext pseudo artery RT DATE OF EXAM: 04/01/2019 COMPARISON: NONE CLINICAL HISTORY: s/p thrombin injection. Pseudo check, S/P thrombin injection right groin EXAM PERFORMED: Grayscale and color Doppler duplex imaging performed of the groin, post cardiac ernestina ter to assess for pseudoaneurysm. SIDE PERFORMED: right Color and Waveform Doppler performed to assess for the presence of pseudoaneurysm; Is there ultrasound evidence of a pseudoaneurysm: right groin pseudoaneurysm appears thrombosed at t his time Is there a fluid collection present: hypoechoic area right groin = 4.1 x 0.7 x 1.4cm, probable hemato ma IMPRESSION: THE PATIENT'S PSEUDOANEURYSM APPEARS FULLY OCCLUDED.
[2019-04-01 09:13] LABS: Basophils # (A) 0.1 k/uL (0-0.2); Basophils % (A) 1 %; Eosinophils # (A) 0.4 k/uL (0-0.7); Eosinophils % (A) 4 %; HCT 44.8 % (39.0-53.0); HGB 14.8 gm/dL (13.0-17.5); Lymphocytes # (A) 1.5 k/uL (1.0-4.8); Lymphocytes % (A) 16 %; MCH 28.9 pg (25.0-35.0); MCHC 33.1 g/dL (31.0-37.0); MCV 87.3 fL (80.0-100.0); Mean Platelet Volume 7.3; Monocytes # (A) 0.4 k/uL (0-1.0); Monocytes % (A) 4 %; Neutrophils # (A) 6.8 k/uL (1.3-7.7); Neutrophils % (A) 73 %; Platelet Count 287 k/uL (150-450); RBC 5.13 m/uL (4.30-5.90); WBC 9.3 k/uL (3.8-10.6)
--- NOTE | 2019-04-01 10:50 | US ---
EXAMINATION TYPE: US inj pseudoaneurysm DATE OF EXAM: 03/31/2019 COMPARISON: Ultrasound 03/30/2019 CLINICAL HISTORY: right groin pseudo. Pseudoaneurysm 2 weeks post cardiac catheterization EXAM PERFORMED: Thrombin injection of pseudoaneurysm SIDE PERFORMED: Right Color and Waveform Doppler performed to assess for the presence of pseudoaneurysm; Pseudoaneurysm persists. PROCEDURE: Maximal barrier technique was utilized. Hand hygiene obtained with soap and water. Ultrasound was used with sterile technique. Ultrasound of the right groin used to localize the skin o verlying the right groin pseudoaneurysm. The skin overlying was prepped and draped. Lidocaine used fo r local anesthesia. 25-gauge needle was advanced under direct ultrasound guidance into the pseudoaneu rysm and 150 units of thrombin were injected. Following the injection color Doppler and grayscale stevenson ging shows no residual flow within the pseudoaneurysm. Common femoral artery remains patent. Patient remained neurovascularly intact distally. No immediate complication. No significant bleeding. Patient is stable condition. IMPRESSION: Thrombin injection for pseudoaneurysm as described. No residual patency of patient's right groin pseu doaneurysm. Follow-up ultrasound be performed to 04/01/2019 to assess for stability. This procedure per formed by the undersigned.
--- NOTE | 2019-04-01 11:00 | PN ---
PROGRESS NOTE Pramod was admitted to hospital pseudoaneurysm and underwent thrombin injection yesterday. He is feeling better and while he still has some groin discomfort, it is much improved. He had a repeat vascular duplex this morning and the pseudoaneurysm appeared fully occluded. On exam, he is comfortable at rest. Vital signs are stable. There is no jugular venous distention. Chest exam reveals good air entry bilaterally. Heart exam reveals first and second heart sounds. No gallop. Exam of extremities did not reveal any edema. Peripheral pulses are felt. Labs show a hemoglobin of 13.5, platelet count is 240. Potassium is 4.1, creatinine is 1. ASSESSMENT: Pseudoaneurysm status post thrombin injection. PLAN: Patient is doing well, is stable for discharge. He will keep his outpatient appointments with me. CLAUDE / DANIELEN: [id number] /
[2019-04-01 11:44] VITALS: BP 132/79; PULSE 61; RESP 12; TEMP 97.8
--- NOTE | 2019-04-01 12:35 | P.DS ---
Providers Date of admission: 03/30/19 18:43 Expected date of discharge: 04/01/19 Attending physician: Janie Leal, DO Consults: 03/30/19 18:43 Consult Physician Urgent Consulting Provider: Denton Russell Consult Reason/Comments: pseudoaneurysm Do you want consulting provider notified?: Yes 03/31/19 08:56 Consult Physician Routine Consulting Provider: [facility] Consult Reason/Comments: pseudoaneurysm Do you want consulting provider notified?: Yes Primary care physician: [facility] Course: 68-year-old male with coronary artery disease on medical therapy, hypertension, who comes to hospital for 2 weeks after left heart cath through the right groin he noticed that there is progressive swelling of his right leg along with ecchymosis over his right groin that was fading out gradually. He reports that he started noticing some pain in his right lower extremity especially with activity. 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 He reports that this pain was 5-6 out of 10 in severity dull achy pain involving his right groin extending all the way to the right leg. Usually pain goes away with sleep and resting and he starts feeling it first thing in the morning when he wakes up and definitely when he goes to his work. He had his follow-up today with his design director recommended that he goes to the hospital for evaluation to rule out DVT. 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 Thrombin injection was given yesterday and pt. tolerated procedure well. Today patient had follow-up ultrasound which showed complete clot formation of the pseudoaneurysm and had Doppler studies done which showed patent flow. Patient was also seen by the cardiology service and they cleared him for discharge home with follow-up with cardiology as an outpatient as scheduled before. Patient clinically is doing much better wants to go home and denies complaints today. Pertinent Studies: Patient has venous Doppler study done initially on March 30 which showed pseudoaneurysm 3 cm and after he had thrombin injection done yesterday again today duplex of the lower exudate is scan was done and ultrasound of the lower extremity was done that was suggestive of clot formation as expected and patient has been cleared for discharge home. Procedures: Thrombin injection into right groin pseudoaneurysm 03/31/2019. Patient Condition at Discharge: Fair Plan - Discharge Summary Discharge Rx Participant: No New Discharge Prescriptions: Continue Cholecalciferol (Vitamin D3) [Vitamin D3] 2,000 unit PO DAILY Metoprolol Succinate (ER) [Toprol XL] 50 mg PO DAILY Aspirin EC [Ecotrin Low Dose] 81 mg PO DAILY #30 tablet. Atorvastatin [Lipitor] 20 mg PO DAILY #30 tab Hydrochlorothiazide 12.5 mg PO DAILY Discharge Medication List Cholecalciferol (Vitamin D3) [Vitamin D3] 2,000 unit PO DAILY 08/28/18 [History] Metoprolol Succinate (ER) [Toprol XL] 50 mg PO DAILY 03/15/19 [History] Aspirin EC [Ecotrin Low Dose] 81 mg PO DAILY #30 tablet. 03/17/19 [Rx] Atorvastatin [Lipitor] 20 mg PO DAILY #30 tab 03/17/19 [Rx] Hydrochlorothiazide 12.5 mg PO DAILY 03/30/19 [History] Follow up Appointment(s)/Referral(s): Jesenia Joseph MD [Primary Care Provider] - 1-2 days Discharge Disposition: HOME SELF-CARE
== END 2019-04-01 12:48 | disposition home or self-care (01) ==
LOC: EC 17:42 → 1SOBS 18:43
PROVIDERS: ADMIT Internal Medicine; ATTEND Internal Medicine
DX: T81.718A Complication of other artery following a procedure, not elsewhere classified, initial encounter (principal); I72.8 Aneurysm of other specified arteries; I25.10 Atherosclerotic heart disease of native coronary artery without angina pectoris; I10 Essential (primary) hypertension; E78.5 Hyperlipidemia, unspecified; R51 Headache; Z79.82 Long term (current) use of aspirin; Z79.899 Other long term (current) drug therapy; Z88.8 Allergy status to other drugs, medicaments and biological substances; M79.661 Pain in right lower leg
CPT/HCPCS: 96361 ×2; 96360; 99284; 80048; 85025 ×2; 85027; 85610; 93975 ×2; 93971; 93926; 36002; G0378 ×3

== ENCOUNTER → 2019-04-11 | Outpatient (CLI) | payer MEDICARE ==
[2019-04-11 16:08] LABS: Chol/HDL Ratio 2.68; LDL Cholesterol,Calculated 54.8 mg/dL (0.0-131.0); VLDL Calculation 14.2 mg/dL (5.00-40.00)
== END ==
LOC: LABWHC1 10:17
PROVIDERS: ATTEND Internal Medicine Cardiovascular Disease
DX: E78.2 Mixed hyperlipidemia (principal)
CPT/HCPCS: 36415; 80061; 84450; 84460

== ENCOUNTER 2022-07-14 11:41 | Emergency (ER) | payer MEDICARE ==
[2022-07-14 13:24] VITALS: BP 136/84; PULSE 59; RESP 20; TEMP 98
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
== END 2022-07-14 13:37 | disposition home or self-care (01) ==
LOC: EC 11:41
DX: R51.9 Headache, unspecified (principal); I10 Essential (primary) hypertension; E11.9 Type 2 diabetes mellitus without complications; Z79.899 Other long term (current) drug therapy; Z88.6 Allergy status to analgesic agent; Z90.49 Acquired absence of other specified parts of digestive tract
CPT/HCPCS: 99283